=== PATIENT | female | born 1945 | race Caucasian/White ===

== ENCOUNTER 2019-08-11 12:25 | Outpatient (CLI) | payer MEDICARE, SELFPAY ==
--- NOTE | 2019-08-15 23:09 | WPDPFTINT ---
PFT Interpretation PFT Interpretation: DOS: 08/11/2019 REQUESTING: Dr. Sexton REASON FOR TESTING: Coughing PULMONARY FUNCTION TESTS Spirometry: FEV1 is 124%, 1.94 L, above normal. FVC is 109%. FEV1% is normal. The TPQ28-03% is 99% and increases by 33% with bronchodilator. Lung volumes: Total lung capacity is 111%, normal. RV is normal, 118%. RV/TLC is elevated consistent with air trapping. Normal airway resistance. Diffusion: DLCO 90%, normal. Flow volume loop: Normal. IMPRESSION: Obstructive process is suggested by mild air trapping. The small airways flows increase with bronchodilator, suggesting asthma. Trial of bronchodilator may be considered. Geetha Cai MD
== END 2019-08-11 12:26 | disposition home or self-care (01) ==
PROVIDERS: PCP Family Medicine; Visit Provider Family Medicine
DX: R05 Cough (principal)
CPT/HCPCS: 94060; 94726; 94729

== ENCOUNTER → 2022-07-02 09:49 | Outpatient (CLI) | payer MEDICARE, SELFPAY ==
--- NOTE | ~2022-07-02 | MM_ITS ---
EXAMINATION: MM screening zoya BI w karmen HISTORY: Screening mammogram TECHNIQUE: Craniocaudal and mediolateral oblique 3-D tomosynthesis images were obtained and synthetic 2-D images were generated. CAD analysis was submitted and interpreted. COMPARISON: 05/25/2019, 01/11/2018 bilateral screening mammogram examinations BREAST PARENCHYMAL COMPOSITION: There are scattered areas of fibroglandular density. FINDINGS: There is no evidence of suspicious mass, calcification, or architectural distortion to sugg est malignancy in either breast. There has been no suspicious interval change. IMPRESSION: 1. No mammographic evidence of malignancy. 2. Recommend routine screening mammography in one year. BI-RADS Category 1: Negative Reviewed, dictated and finalized at location A. [employer]
== END ==
PROVIDERS: PCP Family Medicine; Visit Provider Family Medicine
DX: Z12.31 Encounter for screening mammogram for malignant neoplasm of breast (principal)
CPT/HCPCS: 77063; 77067